=== PATIENT | male | born 1950 | race Caucasian/White ===

== ENCOUNTER 2020-06-28 07:09 | Outpatient (CLI) | payer BC, MEDICARE ==
[2005-12-28 05:48] VITALS: BP 131/91
[~2020-06-28] VITALS: Ht 182.9 cm; Wt 80.3 kg
[2020-06-28 08:18] VITALS: BP 167/90; PULSE 64; TEMP 97.9
[2020-06-28] MEDS ORDERED: NEURONTIN300 MG/CAP PO (08:25)
[2020-06-28] MEDS ORDERED: ZOVIRAX400 MG PO (08:26)
[2020-06-28] MEDS ORDERED: BENTYL 10MG10 MG/CAP PO (08:32)
[2020-06-28] MEDS ORDERED: ZESTRIL 10MG10 MG PO (08:32)
[2020-06-28] MEDS ORDERED: NOVOLOG 100U100 U/M1 SQ (08:33)
[2020-06-28] MEDS ORDERED: BASAGLAR K100 UNIT/1 SQ (08:34)
[2020-06-28] MEDS ORDERED: IMODIUM 2MG CAPS2 MG PO (08:34)
[2020-06-28] MEDS ORDERED: ROXICODONE 55 MG/TAB PO (08:35)
[2020-06-28] MEDS ORDERED: VELCADE3.5 MG IM (08:35)
[2020-06-28 09:39] VITALS: BP 151/94; PULSE 63
[2020-06-28 09:45] VITALS: BP 152/93; PULSE 62
[2020-06-28 09:51] LABS: BASO % 0.2 % (0.0-2.0); EOS # 0.1 (0.0-0.7); EOS % 1.2 % (0-4.0); GRAN % 74.4 % (42.2-75.2); HEMOGLOBIN 12.1 g/dl (13.5-18.0); LYMPH # 0.5 (1.2-3.4); LYMPH % 12.6 % (20.0-51.0); MEAN CELL VOLUME 106 fl (80.0-100.0); MEAN CORPUSCULAR HEMOGLOBIN 36 pg (27.0-31.0); MEAN CORPUSCULAR HGB CONC 34 g/dl (33.0-37.0); MEAN PLATELET VOLUME 10.9 fl (7.4-10.4); MONO # 0.5 (0.1-0.6); MONO % 11.1 % (1.7-9.3); PLATELET COUNT 89 K/mm3 (130-400); RED BLOOD COUNT 3.32 M/mm3 (4.20-5.60); REDCELL DISTRIBUTION WIDTH-CV 12.4 % (11.5-14.5)
[2020-06-28 10:00] VITALS: BP 165/90; PULSE 59
[2020-06-28 10:01] LABS: HEMATOCRIT 35.3 % (42.0-52.0)
[2020-06-28 10:15] VITALS: BP 165/90; PULSE 59
[2020-06-28 10:30] VITALS: BP 167/92; PULSE 62
--- NOTE | 2020-06-28 10:50 | NUR ---
Discharge instructions given to pt.pt verbalizes understanding.INT removed,catheter tip intact.
--- NOTE | 2020-06-28 11:10 | NUR ---
Pt escorted out via wheelchair by this nurse.
== END 2020-06-28 11:38 | disposition home or self-care (01) ==
LOC: SDCO 07:09
PROVIDERS: Pathology Anatomic Pathology & Clinical Pathology
DX: C90.00 Multiple myeloma not having achieved remission (principal); Z20.828 Contact with and (suspected) exposure to other viral communicable diseases
CPT/HCPCS: J2704